=== PATIENT | male | born 1970 | race Caucasian/White ===

== ENCOUNTER → 2017-05-31 07:26 | Outpatient (CLI) | payer MEDICARE ==
[2014-07-16 08:03] VITALS: BMI 22.6
[~2017-05-31 07:26] MED LIST: BAYER CHEWABLE81 MG PO; ISOSORBIDE DINI30 MG PO; NITROQUICK0.4 MG SL; NORCO 5/325 TAB1 TA1 PO; PLAVIX75 MG PO; PRAVACHOL20 MG PO; PRILOSEC20 MG PO; RANEXA500 MG PO; TOPAMAX100 MG PO
== END | disposition home or self-care (01) ==
LOC: D.CT 07:26
DX: R05 Cough (principal); F17.200 Nicotine dependence, unspecified, uncomplicated

== ENCOUNTER → 2017-09-16 10:41 | Outpatient (CLI) | payer MEDICARE ==
[2014-07-16 08:03] VITALS: BMI 22.6
== END | disposition home or self-care (01) ==
LOC: D.RAD 09-06 14:15
DX: M25.512 Pain in left shoulder (principal)

== ENCOUNTER → 2017-11-15 10:44 | Outpatient (CLI) | payer MEDICARE ==
[2014-07-16 08:03] VITALS: BMI 22.6
== END | disposition home or self-care (01) ==
LOC: D.RAD 11-14 11:00
DX: M54.2 Cervicalgia (principal)

== ENCOUNTER 2018-08-20 14:05 | Outpatient (CLI) | payer MEDICARE ==
[~2018-08-20] VITALS: Ht 170.2 cm; Wt 79.8 kg
--- NOTE | ~2018-08-20 | HEMODYNAMI ---
PATIENT:VIRGIL KRAMER JR MEDICAL RECORD: [id number] : 66 LOCATION:[facility] D.2116 ADMISSION DATE: 08/20/18 Generatedon:08/21/201812:41 Patient name: VIRGIL KRAMER Patient #: [id number] SSN: DO B: 1970 Date of study: 08/21/2018 Page: Of Hemodynamic Procedure Report Patient Data Patient Demographics Procedure consent was obtained First Name: VIRGIL Gender: Male Last Name: NIA Suffix: Patient #: [id number] : 1970 Age: 48 year(s) Accession #: Race: Unknown [id number] Additional ID: [id number] Contact details [address]: [address] [place] [address] State: [place] City: [place] Zip code: [address] Admission Admission Data Admission Date: 08/20/2018 Admission Time: 16:39 Room #: D.2116 Lab Results Lab Result Date: 08/21/2018 Lab Result Time: 0:00 Biochemistry Name Units Result Min Max BUN mg/dl 7 --(*---)-- 7 18 Creatinine mg/dl 1.1 --(--*-)-- 0.6 1.3 CBC Name Units Result Min Max Hemoglobin g/dl 14.4 --(*---)-- 13.5 17.5 Procedure Procedure Types Cath Procedure Diagnostic Procedure [facility] w/Coronaries Sedation Charges Moderate Sedation up to 15 minutes PCI Procedure Coronary Stent Coronary Stent Initial Coronary Stent Additional Procedure Description Procedure Date Procedure Date: 08/21/2018 Procedure Start Time: 12:14 Procedure End Time: 12:33 Procedure Staff Name Function Bradford Varma MD Performing Physician Tej Huynh RT Scrub Dilma Lauren RN Nurse Nuvia Oquendo RN Product Design Manager Delicia Chavez RT Monitor Procedure Data Cath Procedure Fluoroscopy Diagnostic fluoroscopy Total fluoroscopy Time: 4.4 time: 4.4 min min Diagnostic fluoroscopy Total fluoroscopy dose: 810 dose: 810 mGy mGy Contrast Material Contrast Material Type Amount (ml) Isovue 300 118 Entry Location Entry Primary Successful Side Size Upsize Upsize Entry Closure Kemp ccessful Closure Location (Fr) 1 (Fr) 2 (Fr) Remarks Device Remarks Radial Right 6 Fr Mechanical artery Short Compression Estimated blood loss: 10 ml Diagnostic catheters Device Type Used For End Catheter Placement DIAGNOSTIC [place] 110cm 5 Procedure Fr catheter ([id number]) Procedure Complications No complications Procedure Medications Medication Administration Route Dosage Oxygen etCO2 Nasal cannula 2 l/min Lidocaine 2% added to field 20 Heparin Flush Bag added to field 2 bags (1000units/500ml NS) 0.9% NaCl I.V. 100 ml/hr Radial Cocktail added to field 1 syringe (Verapomil 2mg/Nitro 400mcg/Heparin 1500units) Heparin Bolus I.V. 4000 units Plavix P.O. 75 mg Versed I.V. 2 mg Fentanyl I.V. 50 mcg Versed I.V. 1 mg Fentanyl I.V. 25 mcg Hemodynamics Rest HGB: 14.4 (g/dl) Heart Rate: 78 (bpm) Snapshots Pre Cath Intra NCS Post Cath Vital Signs Time Heart Resp SPO2 etCO2 NIBP Rhythm Pain Sedation Rate (ipm) (%) (mmHg) (mmHg) Status Level (bpm) 11:53:40 85 19 97 23.7 113/79(97) NSR 0 (11) 10(A) , No pain 11:57:48 76 14 99 22.7 106/70(85) NSR 0 (11) 10(A) , No pain 12:01:57 64 13 98 18.9 99/62(80) NSR 0 (11) 10(A) , No pain 12:06:05 69 11 98 18.2 92/66(84) NSR 0 (11) 10(A) , No pain 12:10:07 70 10 97 18.9 105/72(98) NSR 0 (11) 10(A) , No pain 12:14:13 74 10 98 18.2 108/76(85) NSR 0 (11) 10(A) , No pain 12:18:25 80 13 97 13.7 109/60(77) NSR 0 (11) 10(A) , No pain 12:22:28 80 10 98 14 104/67(85) NSR 0 (11) 10(A) , No pain 12:26:36 80 12 97 17.8 112/69(89) NSR 0 (11) 10(A) , No pain 12:30:46 80 11 98 20.6 104/66(83) NSR 0 (11) 10(A) , No pain Medications Time Medication Route Dose Verified Delivered Reason Not es Effectiveness by by 11:51:48 Oxygen etCO2 2 l/min Bradfordchristy Perera used for Nasal Avani Lauren RN procedure cannula 11:51:55 Lidocaine 2% added 20ml Bradford Bradford for local to vial Avani Varma MD anesthetic field 11:52:02 Heparin Flush added 2 bags Bradford Felder used for Bag to Avani Varma MD procedure (1000units/500ml field NS) 11:52:12 0.9% NaCl I.V. 100 Bradfordchristy Hernandezie Per physician ml/hr Avani Lauren RN 12:07:19 Radial Cocktail added 1 Bradford Nuvia used for (Verapomil to syringe Avani Oquendo procedure 2mg/Nitro field RN 400mcg/Heparin 1500units) 12:13:07 Fentanyl I.V. 50 mcg Bradford Nuvia for sedation Avani Oquendo RN 12:13:54 Versed I.V. 2 mg Bradford Nuvia for sedation Avani Oquendo RN 12:21:14 Heparin Bolus I.V. 4000 Bradford Nuvia for amadeo ified units Avani Oquendo anticoagulation with Dr. PK Varma 12:21:47 Plavix P.O. 75 mg Bradford Nuvia for Avani Oquendo antiplatelet RN therapy 12:25:21 Versed I.V. 1 mg Bradford Nuvia for sedation Avani Oquendo RN 12:25:32 Fentanyl I.V. 25 mcg Bradford Nuvia for sedation Avani Oquendo RN Procedure Log Time Note 11:30:22 Dilma Lauren RN sent for patient. Start room use. 11:38:37 Time tracking: Regular hours (M-F 7:00 - 5:00) 11:38:41 Plan of Care:Hemodynamics will remain stable., Cardiac rhythm will remain stable., Comfort level will be maintained., Respiratory function will remain adequate., Patient/ family verbilizes understanding of procedure., Procedure tolerated without complication., Recovers from procedure without complications.. 11:44:11 Patient received from PCU to CCL 1 Alert and oriented. Tansferred to table in Supine position. 11:44:12 Warm blankets applied, and cosme hugger turned on for patient comfort. 11:44:13 Correct patient and procedure confirmed by team. 11:44:14 Signed procedure consent form obtained from patient. 11:44:15 ECG and BP/O2 sat monitors applied to patient. 11:51:48 Oxygen 2 l/min etCO2 Nasal cannula was administered by Dilma Lauren RN; used for procedure; 11:51:55 Lidocaine 2% 20ml vial added to field was administered by Bradford Varma MD; for local anesthetic; 11:52:02 Heparin Flush Bag (1000units/500ml NS) 2 bags added to field was administered by Bradford Varma MD; used for procedure; 11:52:12 0.9% NaCl 100 ml/hr I.V. was administered by Dilma Lauren RN; Per physician; 11:52:37 Vital chart was started 11:59:23 Baseline sample Acquired. 11:59:28 Rhythm: sinus rhythm 11:59:30 Full Disclosure recording started 11:59:44 H&P Date Dictated: 08/20/2018 Within 30 days and on chart., H&P Addendum completed by physician on day of procedure. (MUST COMPLETE FOR ALL OUTPATIENTS). 11:59:45 Pre-procedure instructions explained to patient. 11:59:45 Pre-op teaching completed and patient verbalized understanding. 11:59:46 Family in patients room. 11:59:51 Patient NPO since Midnight. 11:59:55 Is the patient allergic to Iodine/contrast media? No. 11:59:56 Is patient on blood thinner?Yes 11:59:57 ACC The patient was administered the following blood thiners within the last 24 hours: ACCPlavix 11:59:59 Patient diabetic? No. 12:00:02 Previous problem with sedation/anesthesia? No ? 12:00:03 Snore? Yes 12:00:04 Sleep apnea? No 12:00:05 Deviated septum? No 12:00:05 Opens mouth fully? Yes 12:00:06 Sticks out tongue? Yes 12:00:09 Airway obstruction? Yes COPD 12:00:13 Dentures? Yes IN TIGHT 12:00:17 Modified Ken's test Ulnar < 7 seconds 12:00:21 Patient pain scale 0/10 ?. 12:00:26 IV patent on arrival in right forearm with 0.9% NaCl at [facility] 12:00:55 Lab Result : Creatinine 1.1 mg/dl 12:00:55 Lab Result : BUN 7 mg/dl 12:00:55 Lab Result : Hemoglobin 14.4 g/dl 12:00:57 Lab results completed and on chart. 12:01:00 Right Radial & Right Groin area was prepped with chlora-prep and draped in sterile fashion 12:01: Alarms reviewed by R. N. 12:01: Sharps counted by scrub and verified by R.N. 12:01:16 Use device set Radial Dx or PCI 12:02:38 ACIST Syringe (34316) opened to sterile field. 12:02:39 ACIST Hand Control (49788) opened to sterile field. 12:02:39 ACIST Manifold (60785) opened to sterile field. 12:02:40 Tegaderm 4 x 4 (1626W) opened to sterile field. 12:02:41 Bag Decanter (2002S) opened to sterile field. 12:02:43 Medline Cath Pack ([id number]) opened to sterile field. 12:02:44 DIAGNOSTIC WIRE .035 260cm J wire (395078) opened to sterile field. 12:02:46 MBrace Wrist Support ([id number]) opened to sterile field. 12:02:49 SHEATH 6Fr Prelude Radial ([id number]) opened to sterile field. 12:06:44 Zero performed for pressure channel P1 12:07:19 Radial Cocktail (Verapomil 2mg/Nitro 400mcg/Heparin 1500units) 1 syringe added to field was administered by Nuvia Oquendo RN; used for procedure; 12:12:17 --------ALL STOP TIME OUT------ 12:12:18 Final Timeout: patient, procedure, and site verified with staff and physician. All members of the team are in agreement. 12:12:20 Right Radial & Right Groin site verified by team. 12:12:23 Physical assessment completed. ASA score P 2 - A patient with mild systemic disease as per Bradford Varma MD. 12:12:29 Sedation plan: IV Moderate Sedation Medication:Versed, Fentanyl 12:13:07 Fentanyl 50 mcg I.V. was administered by Nuvia Oquendo RN; for sedation; 12:13:54 Versed 2 mg I.V. was administered by Nuvia Oquendo RN; for sedation; 12:14:09 Procedure started. 12:14:23 Local anesthetic to right radial artery with Lidocaine 2% by Bradford Varma MD.INITIAL ACCESS ONLY 12:14:58 A 6 Fr Short sheath was inserted into the Right Radial artery 12:15:30 A DIAGNOSTIC [place] 110cm 5 Fr catheter ([id number]) was advanced over the wire and used for Procedure. 12:16:02 LV gram done using GARRISON 12:16:11 Injector settings: Ml/sec: 7, Volume: 15, 12:16:35 EF : 60 % 12:17:03 LCA angiography performed. 12:17:40 INFLATOR Merit BasixCompak (SN4603) opened to sterile field. 12:17:41 CHOICE PT Extra Support 182cm wire ([id number]) opened to sterile field. 12:18:07 RCA angiography performed. 12:18:36 Catheter exchanged over wire. 12:19:05 GUIDE 6FR XBLAD 3.5 catheter ([id number]) opened to sterile field. 12:20:17 6 Fr XBLAD 3.5 guide catheter was inserted over the wire 12:20:30 CHOICE PT Extra Support 182cm wire ([id number]) opened to sterile field. 12:21:05 CHOICE ES 182 #1 wire advanced. 12:21:14 Heparin Bolus 4000 units I.V. was administered by Nuvia Oquendo RN; for anticoagulation; verified with Dr. Varma 12:21:42 WIRE #1 ADVANCED ACROSS DIAG 12:21:47 Plavix 75 mg P.O. was administered by Nuvia Oquendo RN; for antiplatelet therapy; 12:22:37 WIRE #2 ADVANCED ACROSS LAD 12:24:59 Place stent Inflation Number: 1 A TEVIN RX 2.5 x 18 stent ([id number]) was prepped and advanced across the 1st Diag. The stent was deployed at 17 JOHN for 0:10 (min:sec). 12:25:19 Inflation number: 2 The stent balloon was then re-inflated across the 1st Diag to 17 JOHN for 0:10 (min:sec). 12:25:21 Versed 1 mg I.V. was administered by Nuvia Oquendo RN; for sedation; 12::32 Fentanyl 25 mcg I.V. was administered by Nuvia Oquendo RN; for sedation; 12::03 Inflation number: 3 The stent balloon was then re-inflated across the 1st Diag to 15 JOHN for 0:10 (min:sec). 12:: Stent catheter was removed intact over wire. 12:: WIRE FROM DIAG REMOVED 12:28:08 Place stent Inflation Number: 1 A TEIVN RX 3.0 x 15 stent ([id number]) was prepped and advanced across the Prox LAD. The stent was deployed at 17 JOHN for 0:10 (min:sec). 12::48 Stent catheter was removed intact over wire. 12::50 Wire removed. 12::52 Guide catheter removed. 12:29:00 TR BAND Standard ([id number]) opened to sterile field. 12:30:01 Procedure ended.(Physican Out) 12::31 Sheath removed intact; hemostasis achieved with Mechanical Compression to the Right Radial artery. 12:31:35 Fluoroscopy time 04.40 minutes. 12:31:39 Fluoroscopy dose: 810 mGy 12:31:39 Flurop Dose total: 810 12:31:42 Contrast amount:Isovue 300 118ml. 12:31:57 Post-procedure physical assessment completed. ASA score P 2 - A patient with mild systemic disease as per Bradford Varma MD. 12:32:01 Post procedure rhythm: sinus rhythm 12:32:04 Estimated blood loss: 10 ml 12:32:05 Post procedure instruction explained to patient.Patient verbalizes understanding. 12:32:06 Patient needs reinforcement of post procedure teaching. 12:32:30 Procedure type changed to Cath procedure, Diagnostic procedure, LHC, LHC w/Coronaries, Sedation Charges, Moderate Sedation up to 15 minutes, PCI procedure, Coronary Stent, Coronary Stent Initial, Coronary Stent Additional 12:32:53 Procedure and supply charges have been captured, reviewed, submitted and are correct. 12:32:55 Procedure Complication : No complications 12:32:57 Vital chart was stopped 12:32:58 See physician's report for complete and final results. 12:33:00 Report given to PCU. 12:33:02 Patient transfered to PCU with Bed. 12:33:04 Procedure ended. 12:33:04 Full Disclosure recording stopped 12:33:08 End room use (Document Last) 12:39:02 TR band inflated with 10cc of air. 12:40:11 IV ON RIGHT FOREARM REMOVED TO PLACE TR BAND ON THE RIGHT WRIST 12:40:27 IV right forearm D/C'd due to need to relocate for procedure.. 12:40:38 IV started by Nuvia Oquendo RN inleft forearm with a 20 gauge IV catheter with 0.9% NaCl at O. Intervention Summary Intervention Notes Time ActionType Lesion and Equipment Used Action# Pressure Duration Attributes 12:24:59 Place stent 1st Diag TEVIN RX 2.5 x 1 17 00:10 18 stent ([id number]) 12:25:19 Reinflate 1st Diag TEVIN RX 2.5 x 2 17 00:10 stent 18 stent balloon ([id number]) 12:26:03 Reinflate 1st Diag TEVIN RX 2.5 x 3 15 00:10 stent 18 stent balloon ([id number]) 12:28:08 Place stent Prox LAD TEVIN RX 3.0 x 1 17 00:10 15 stent ([id number]) Device Usage Item Name Manufacture Quantity Catalog Number Hospital Part Current Minimal Lot# / Charge Number Stock Stock Serial# Code ACIST Syringe Acist 1 47572 227492 582752 961958 20 (72902) Medical Systems Inc ACIST Hand Acist 1 53119 108158 129192 448760 5 Control (19286) [employer] Inc ACIST Manifold Acist 1 94476 829790 488976 953992 5 (83278) [employer] Systems Inc Tegaderm 4 x 4 3M 1 1626W 691318 496501 979534 5 (1626W) Bag Decanter Microtek 1 2001S 864243 61034 523757 5 (2001S) Medical Inc. Medline Cath Medline 1 [id number] 509306 78426 246653 5 Pack ([id number]) DIAGNOSTIC WIRE [place] 1 076609 332707 724071 975979 30 .035 260cm J wire (147543) MBrace Wrist Advanced 1 140-0250-00 445307 80035 442230 5 Support Vascular ([id number]) Dynamics SHEATH 6Fr Merit 1 [id number] 489686 150185 652088 5 Prelude Radial Medical ([id number]) DIAGNOSTIC Terumo 1 40-3315 807288 874296 613297 5 [place] 110cm 5 Fr catheter (104030) INFLATOR Merit Merit 1 [id number] 173355 697645 282381 15 [facility] Medical (XE3584) CHOICE PT Extra [place] 2 [id number] 919395 499605 502725 5 Support 182cm Scientific wire ([id number]) GUIDE 6FR XBLAD Cardinal 1 [id number] 262074 534344 176067 10 3.5 catheter Health (19722588) TEVIN RX 2.5 x Medtronic 1 [id number] 063099 8292063 274556 5 [id number] 18 stent ([id number]) TEVIN RX 3.0 x Medtronic 1 [id number] 168082 9999321 661704 5 [id number] 15 stent ([id number]) TR BAND Terumo 1 [id number] 985739 553436 775216 40 Standard ([id number]) Signature Audit [place] Stage Time Signature Unsigned Intra-Procedure 08/21/2018 Delicia Chavez 12:41:22 PM RT(R) Signatures Monitor : Delicia Chavez Signature : RT Date : Time : [address] [address]
--- NOTE | ~2018-08-20 | MORECARE ---
CASE MANAGEMENT DISCHARGE SUMMARY PATIENT: VIRGIL KRAMER JR UNIT: [id number] ADM DATE: 08/20/18 AGE: 48 : 66 SEX: M ROOM/BED: D.2116 AUTHOR: SHILO,DOC PHYSICIAN: REFERRING PHYSICIAN: JANICE AUSTIN M.D. DATE OF SERVICE: 08/21/18 Discharge Plan Patient Name: VIRGIL KRAMER Facility: [facility]:[place] : 1970 Planned Disposition: Home Anticipated Discharge Date: Discharge Date: Expected LOS: Initial Reviewer: [email or web address] Initial Review Date: 08/20/2018 Generated: 08/21/18 8:31 am DCP- Discharge Planning Updated by [email or web address]: Angie Wong on 08/20/18 5:[address] CM met with patient and friend in ER/room to discuss dc needs/plans. Patient provided verbal consent to discuss current and ongoing needs with/in the presence of Mary Poeears (live-in friend) [phone]. CM discussed availability of Home Health, Rehab Services and Medical Equipment. PCP: Dr. Caldwell. Pharmacy: [facility]. HHS: None. DME: None. Emergency Contact: Mary Poeears (friend) [phone], Lakeshia Anderson (sister) [phone]. Patient states he feels safe returning to the home environment and at this time, he does not feel he requires additional services upon discharge. CM will continue to follow and assist with dc needs/plans PRN. Angie Wong RN CM DCPIA - Discharge Planning Initial Assessment Updated by [email or web address]: Angie Wong on 08/20/18 6:09 pm * Is the patient Alert and Oriented? Yes * How many steps to enter\exit or inside your home? 3 with arce * PCP Dr. Caldwell * Pharmacy [facility] * Preadmission Environment Home with Family * ADLs Independent * Equipment None * Other Equipment None * List name and contact numbers for known caregivers / representatives who currently or will assist patient after discharge: Mary Poeears (live-in friend) [phone] Lakeshia Anderson (sister) [phone] * Verbal permission to speak to the caregivers and representatives has been obtained from the patient. Yes * Community resources currently utilized None * Please name any agencies selected above. None * Additional services required to return to the preadmission environment? No * Can the patient safely return to the preadmission environment? Yes * Has this patient been hospitalized within the prior 30 days at any hospital? No Last DP export: 08/20/18 5:14 Patient Name: VIRGIL KRAMER Page 18578 at 0731 All edits/amendments must be made on the electronic document DICTATION DATE: 08/21/18729 FRUIT PACKER: NAN 08/21/18729 RPT#: [id number] DC DATE: STATUS: ADM IN [facility] [address] [place] [address] END OF REPORT
--- NOTE | ~2018-08-20 | MORECARE ---
CASE MANAGEMENT DISCHARGE SUMMARY PATIENT: VIRGIL KRAMER JR UNIT: [id number] ADM DATE: 08/20/18 AGE: 48 : 66 SEX: M ROOM/BED: D.2116 AUTHOR: NEETU LAO PHYSICIAN: REFERRING PHYSICIAN: JANICE AUSTIN M.D. DATE OF SERVICE: 08/20/18 Discharge Plan Patient Name: VIRGIL KRAMER Facility: [facility]:[place] : 1970 Planned Disposition: Anticipated Discharge Date: Discharge Date: Expected LOS: Initial Reviewer: [email or web address] Initial Review Date: 08/20/2018 Generated: 08/20/18 7:06 pm DCP- Discharge Planning Updated by [email or web address]: Angie Wong on 08/20/18 5:[address] CM met with patient and friend in ER/room to discuss dc needs/plans. Patient provided verbal consent to discuss current and ongoing needs with/in the presence of Mary Perez (live-in friend) [phone]. CM discussed availability of Home Health, Rehab Services and Medical Equipment. PCP: Dr. Caldwell. Pharmacy: [facility]. HHS: None. DME: None. Emergency Contact: Mary Perez (friend) [phone], Lakeshia Anderson (sister) [phone]. Patient states he feels safe returning to the home environment and at this time, he does not feel he requires additional services upon discharge. CM will continue to follow and assist with dc needs/plans PRN. Angie Wong RN, CM Patient Name: VIRGIL KRAMER Page [id number] at 1806 All edits/amendments must be made on the electronic document DICTATION DATE: 08/20/181805 PHYSICIAN PRACTICE COORDINATOR: NAN 08/20/181805 RPT#: [id number] DC DATE: STATUS: ADM IN [facility] [address] [place] [address] END OF REPORT
--- NOTE | ~2018-08-20 | MORECARE ---
CASE MANAGEMENT DISCHARGE SUMMARY PATIENT: VIRGIL KRAMER JR UNIT: [id number] ADM DATE: 08/20/18 AGE: 48 : 66 SEX: M ROOM/BED: D.2116 AUTHOR: SHILO,DOC PHYSICIAN: REFERRING PHYSICIAN: JANICE AUSTIN M.D. DATE OF SERVICE: 08/21/18 Discharge Plan Patient Name: VIRGIL KRAMER Facility: [facility]:[place] : 1970 Planned Disposition: Home Anticipated Discharge Date: 08/21/18 Discharge Date: Expected LOS: 1 Initial Reviewer: [email or web address] Initial Review Date: 08/20/2018 Generated: 08/21/18 4:38 pm DCP- Discharge Planning Updated by [email or web address]: Angie Wong on 08/20/18 5:[address] CM met with patient and friend in ER/room to discuss dc needs/plans. Patient provided verbal consent to discuss current and ongoing needs with/in the presence of Mary Perez (live-in friend) [phone]. CM discussed availability of Home Health, Rehab Services and Medical Equipment. PCP: Dr. Caldwell. Pharmacy: [facility]. HHS: None. DME: None. Emergency Contact: Mary Perez (friend) [phone], Lakeshia Anderson (sister) [phone]. Patient states he feels safe returning to the home environment and at this time, he does not feel he requires additional services upon discharge. CM will continue to follow and assist with dc needs/plans PRN. Angie Wong RN CM DCPIA - Discharge Planning Initial Assessment Updated by [email or web address]: Angie Wong on 08/20/18 6:09 pm * Is the patient Alert and Oriented? Yes * How many steps to enter\exit or inside your home? 3 with arce * PCP Dr. Caldwell * Pharmacy [facility] * Preadmission Environment Home with Family * ADLs Independent * Equipment None * Other Equipment None * List name and contact numbers for known caregivers / representatives who currently or will assist patient after discharge: Mary Perez (live-in friend) [phone] Lakeshia Anderson (sister) [phone] * Verbal permission to speak to the caregivers and representatives has been obtained from the patient. Yes * Community resources currently utilized None * Please name any agencies selected above. None * Additional services required to return to the preadmission environment? No * Can the patient safely return to the preadmission environment? Yes * Has this patient been hospitalized within the prior 30 days at any hospital? No Last DP export: 08/21/18 6:31 Patient Name: VIRGIL KRAMER Page 42888 at 1539 All edits/amendments must be made on the electronic document DICTATION DATE: 08/21/181537 TRANSCRIBING MACHINE OPERATOR: NAN 08/21/181537 RPT#: [id number] DC DATE: STATUS: ADM IN [facility] [address] [place] [address] END OF REPORT
--- NOTE | ~2018-08-20 | DS ---
PATIENT:VIRGIL KRAMER JR :66 MEDICAL RECORD: [id number] DISCHARGE SUMMARY ADMISSION DATE: 08/20/18 DISCHARGE DATE: 08/21/18 DATE OF DISCHARGE: 08/21/2018. DIAGNOSES: 1. Angina. 2. Coronary artery disease. 3. Percutaneous transluminal coronary angioplasty stent left anterior descending and diagonal this admission. HOSPITAL COURSE: Mr. Kramer presents with anginal symptomatology, found to have significant disease of the LAD and diagonal, underwent successful PTCA stent of both territories, was discharged home with the addition of aspirin and Plavix to his medical regimen. He will follow up with [facility] in 1 month. TRANSINT:[id number] Voice Confirmation ID: [id number] DOCUMENT ID: [id number] SRIDEVI LEPE MD at 8054 CC: [id number] DICTATION DATE: 08/21/18 1234 PET TECHNOLOGIST: 08/22/18 0056 DIS IN 08/21/18 [facility] [address] [place] [address]
--- NOTE | ~2018-08-20 | MORECARE ---
CASE MANAGEMENT DISCHARGE SUMMARY PATIENT: VIRGIL KRAMER JR UNIT: [id number] ADM DATE: 08/20/18 AGE: 48 : 66 SEX: M ROOM/BED: D.2116 AUTHOR: SHILO,DOC PHYSICIAN: REFERRING PHYSICIAN: JANICE AUSTIN M.D. DATE OF SERVICE: 08/20/18 Discharge Plan Patient Name: VIRGIL KRAMER Facility: [facility]:[place] : 1970 Planned Disposition: Anticipated Discharge Date: Discharge Date: Expected LOS: Initial Reviewer: [email or web address] Initial Review Date: 08/20/2018 Generated: 08/20/18 7:14 pm DCP- Discharge Planning Updated by [email or web address]: Angie Wong on 08/20/18 5:[address] CM met with patient and friend in ER/room to discuss dc needs/plans. Patient provided verbal consent to discuss current and ongoing needs with/in the presence of Mary Ndiayeshears (live-in friend) [phone]. CM discussed availability of Home Health, Rehab Services and Medical Equipment. PCP: Dr. Caldwell. Pharmacy: [facility]. HHS: None. DME: None. Emergency Contact: Mary Poeears (friend) [phone], Lakeshia Anderson (sister) [phone]. Patient states he feels safe returning to the home environment and at this time, he does not feel he requires additional services upon discharge. CM will continue to follow and assist with dc needs/plans PRN. Angie Wong RN CM DCPIA - Discharge Planning Initial Assessment Updated by [email or web address]: Angie Wong on 08/20/18 6:09 pm * Is the patient Alert and Oriented? Yes * How many steps to enter\exit or inside your home? 3 with arce * PCP Dr. Caldwell * Pharmacy [facility] * Preadmission Environment Home with Family * ADLs Independent * Equipment None * Other Equipment None * List name and contact numbers for known caregivers / representatives who currently or will assist patient after discharge: Mary Ndiayeshears (live-in friend) [phone] Lakeshia Anderson (sister) [phone] * Verbal permission to speak to the caregivers and representatives has been obtained from the patient. Yes * Community resources currently utilized None * Please name any agencies selected above. None * Additional services required to return to the preadmission environment? No * Can the patient safely return to the preadmission environment? Yes * Has this patient been hospitalized within the prior 30 days at any hospital? No Last DP export: 08/20/18 5:06 Patient Name: VIRGIL KRAMER Page [id number] at 1814 All edits/amendments must be made on the electronic document DICTATION DATE: 08/20/181813 SALES REPRESENTATIVE PUBLICATIONS: NAN 08/20/181813 RPT#: [id number] [place] DATE: STATUS: ADM IN [facility] [address] [place] [address] END OF REPORT
--- NOTE | ~2018-08-20 | HP ---
PATIENT: VIRGIL MERINO JR MEDICAL RECORD: [id number] ACCOUNT: [id number] LOCATION:[address] : 66 ADMISSION DATE: 08/20/18 PCP: FABIAN BRIDGES MD HISTORY AND PHYSICAL EXAMINATION DIAGNOSES: 1. Unstable angina. 2. Coronary disease. 3. Previous PTCA and stent. 4. Hypertension. 5. Hyperlipidemia. HISTORY: Mr. Merino presents with increasing anginal symptomatology. This has been going on for weeks, but it really increased over the past 24 hours. His EKG is with no acute ST-T abnormalities. He continues to have episodes of the chest discomfort. Last cardiac stenting was 6 years ago. The pain he is having now and the shortness of breath are just like the symptoms he had prior to the stenting 6 years ago. REVIEW OF SYSTEMS: The patient reports easy bruising but reports no swollen glands. The patient reports no fever, no night sweats, no significant weight gain, no significant weight loss. No significant exercise tolerance. The patient reports no dry eyes, no irritation, no vision change. Patient reports no difficulty hearing and no ear pain. Patient reports no frequent nose bleeds or nose and sinus problems. Patient reports on arm pain on exertion. No shortness of breath while lying down. No history of heart murmur. Patient reports no cough, no wheezing or coughing up blood. Patient reports no abdominal pain, no vomiting. Normal appetite. No diarrhea and not vomiting blood. No nausea and no constipation. Patient reports no incontinence. No difficulty urinating. No hematuria. No increased frequency. Patient reports no muscle aches. No weakness, no arthralgias, no back pain. No swelling of the extremities. Patient reports no abnormal mole, no jaundice, no rashes. Reports no loss of consciousness. No weakness and no numbness. No seizures, dizziness, or headaches. The patient reports no depression, no sleep disturbance, feeling safe in a relationship and no alcohol abuse. Patient reports on fatigue. Reports no runny nose or sinus pressure. No itching, no hives, and no frequent sneezing. PHYSICAL EXAMINATION: GENERAL APPEARANCE: Well-nourished, well-developed, appears stated age. Level of distress, comfortable. PSYCHIATRIC: Mental status, alert, normal affect. Orientation, oriented to time, place and person. EYES: Lids and conjunctiva, noninjected. No discharge, no pallor. ENT: Lips, teeth, gums, normal dentition. Oropharynx, no cyanosis, no pallor. NECK: Carotid arteries, bilateral normal upstroke, no bruits, no thrills. JUGULAR VEINS: No jugular venous pressure or distention. CERVICAL LYMPH NODES: Nontender, nonenlarged. THYROID: Not enlarged. Nontender. No nodules. LUNGS: Respiratory effort, unlabored. CHEST: Normal curvature. No thoracic deformity. No chest wall tenderness. Percussion, resonant. Auscultation, clear. No wheezes, no rales, no rhonchi. CARDIOVASCULAR: Precordial exam, nondisplaced. No heaves or pericardial thrills. Rate and rhythm, regular. Heart sounds, normal S1, normal S2. No S3, no gallop, no rub. Systolic murmur, not heard. Diastolic murmur, not heard. HISTORY AND PHYSICAL [id number] VIRGIL MERINO JR EXTREMITIES: No cyanosis, no edema. Peripheral pulses, full and equal in all extremities, except as noted. No bruits appreciated. ABDOMEN: Soft, nondistended. Normal aorta. No bruit. Nontender. No masses. Liver, nontender, no hepatomegaly. Spleen, nontender, no splenomegaly. MUSCULOSKELETAL: No joint tenderness. No joint swelling. No erythema. NEUROLOGICAL: Normal gait, normal strength, normal tone. SKIN: Warm and dry. OVERALL IMPRESSION: Rapidly progressive unstable angina. We will proceed with coronary angiography. Further care depends upon findings of the angiography. TRANSINT:[id number] Voice Confirmation ID: [id number] DOCUMENT ID: [id number] SRIDEVI LEPE MD at 1233 CC: [id number] DICTATION DATE: 08/20/18 170 CONSTRUCTION TECHNICIAN: 08/20/18 175 ADM IN [facility] [address] [place] [address]
--- NOTE | ~2018-08-20 | OP ---
PATIENT NAME: VIRGIL KRAMER JR MEDICAL RECORD: [id number] :66 LOCATION:D.M2 D.2116 ADMISSION DATE:08/20/18 SURGEON: SRIDEVI LEPE MD DATE OF OPERATION: 08/21/2018 PROCEDURES: 1. PTCA and stent of LAD. 2. PTCA and stent of LAD diagonal. 3. Left heart catheterization. 4. Selective coronary angiography. 5. Left ventriculogram. INDICATION: Unstable angina. PROCEDURE IN DETAIL: After informed consent was obtained and after a detailed explanation of risks, benefits as well as alternative therapies, the patient elected to proceed with angiogram and angioplasty. The right femoral area was prepped and draped in normal sterile fashion. Right femoral artery was cannulated via modified Seldinger technique with placement of 6-Gabonese sheath. All catheters exchanged through this sheath. FINDINGS: Left ventriculogram was performed in a standard 30-degree GARRISON view, reveals good cardiac wall motion throughout all segments. Overall ejection fraction estimated 60%. SELECTIVE CORONARY ANGIOGRAPHY: 1. Left main is with no significant angiographic disease. 2. Left anterior descending has previously placed stents. Just before the previously placed stents, there is 80% stenosis. 3. The diagonal has previously placed stents. Just before this, there is 80% stenosis. 4. The left circumflex has mild irregularities. Previously placed stents are noted. No significant restenosis. 5. The right coronary has mild irregularities, but no flow-limiting stenosis. PTCA AND STENT OF THE LAD AND LAD DIAGONAL: The diagonal was addressed with a 2.5 x 18-mm [place], the LAD with a 3.5 x 15-mm [place]. Result was 0% residual stenosis. OVERALL IMPRESSION: Successful PTCA and stent of the LAD and diagonal going from 80% initial stenosis to 0% residual. TRANSINT:[id number] Voice Confirmation ID: [id number] DOCUMENT ID: [id number] SRIDEVI LEPE MD at 0754 CC: [id number] DICTATION DATE: 08/21/18 1236 EDIPHONE OPERATOR: 08/21/18 1245 DIS IN 08/21/18 [facility] [address] [place] [address]
[2018-08-20 14:45] LABS: BASOPHILS 0.8 % (0-2); EOSINOPHILS 5.1 % (0-7); HEMATOCRIT 41.9 % (42.0-54.0); HEMOGLOBIN 14.4 g/dL (13.5-17.5); IMMATURE GRANULOCYTES 0.5 % (0-5); LYMPHOCYTES 36.3 % (15-50); MCH 30.8 pg (26.0-34.0); MCHC 34.4 g/dL (31.0-37.0); MCV 89.5 fL (80.0-100.0); MEAN PLATELET VOLUME 9.3 fL (7.4-10.4); MONOCYTES 6.7 % (2-11); NEUTROPHILS 50.6 % (40-80); PLATELET COUNT 238 10x3/uL (130-400); RBC 4.68 10x6/uL (4.20-6.10); RDW 14.4 % (11.5-14.5); WBC 9.5 10x3/uL (4.8-10.8)
[2018-08-20 14:53] LABS: INR 0.99 (0.85-1.17); PROTIME 12.7 SECONDS (11.6-15.0)
[2018-08-20 14:54] LABS: APTT 29.4 SECONDS (22.8-39.4)
[2018-08-20 15:02] LABS: ALBUMIN 3.6 g/dL (3.4-5.0); ALKALINE PHOSPHATASE 122 U/L (46-116); ALT (SGPT) 39 U/L (10-68); BILIRUBIN - TOTAL 0.18 mg/dL (0.2-1.3); CALC OSMOLALITY 278 mosm/kg (275-300); CALCIUM 8.4 mg/dL (8.5-10.1); CHLORIDE - SERUM 106 mmol/L (98-107); CREATININE - SERUM 1.1 mg/dL (0.6-1.3); GLUCOSE 136 mg/dL (74-106); POTASSIUM - SERUM 3.4 mmol/L (3.5-5.1); PROTEIN - SERUM 7.1 g/dL (6.4-8.2); SODIUM 140 mmol/L (136-145); UREA NITROGEN 7 mg/dL (7-18); eGFR NON AFRICAN AMERICAN 75 mL/min (90-120)
[2018-08-20 15:17] LABS: CKMB 0.9 U/L (0.0-3.6); CREATINE KINASE 89 UL (21-232); MAGNESIUM - SERUM 2.1 mg/dL (1.8-2.4)
[2018-08-20 15:20] LABS: TROPONIN-I < 0.017 ng/mL (0.000-0.060)
[2018-08-20 16:00] VITALS: BP 123/63
[2018-08-20 17:00] VITALS: BP 107/65
[2018-08-20 18:20] VITALS: BP 122/75; BMI 27.6
[2018-08-20 18:46] LABS: CKMB 0.7 U/L (0.0-3.6); CREATINE KINASE 89 UL (21-232)
[2018-08-20 18:47] LABS: TROPONIN-I < 0.017 ng/mL (0.000-0.060)
[2018-08-20 20:00] VITALS: BP 123/78
[2018-08-20 23:28] LABS: CKMB 0.6 U/L (0.0-3.6); CREATINE KINASE 84 UL (21-232)
[2018-08-20 23:29] LABS: TROPONIN-I < 0.017 ng/mL (0.000-0.060)
[2018-08-21] VITALS: BP 106/69
[2018-08-21 06:56] LABS: CKMB 0.6 U/L (0.0-3.6); CREATINE KINASE 77 UL (21-232)
[2018-08-21 07:00] LABS: TROPONIN-I < 0.017 ng/mL (0.000-0.060)
[2018-08-21 07:48] VITALS: BP 108/71
[2018-08-21 10:48] VITALS: Ht 170.2 cm; Wt 79.8 kg
[2018-08-21 11:31] VITALS: BP 98/58
[2018-08-21] MEDS ORDERED: ASPIRIN81 MG PO (14:45)
[2018-08-21] MEDS ORDERED: PLAVIX75 MG PO (14:45)
[2018-08-21 15:15] VITALS: BP 110/75
== END 2018-08-21 17:12 | disposition home or self-care (01) ==
LOC: OBSVTIME → D.OPS 14:05 → D.ER 14:05 → D.EDHOLD 16:39 → OBSVTIME 16:39 → D.ER 16:39 → D.M2 16:39 → D.EDHOLD 16:56 → EDSTATUS 08-21 09:00 → D.OPS 08-21 17:12 → D.M2 08-21 17:12
PROVIDERS: Emergency Medicine
DX: I25.110 Atherosclerotic heart disease of native coronary artery with unstable angina pectoris (principal); I10 Essential (primary) hypertension; E78.5 Hyperlipidemia, unspecified
CPT/HCPCS: 93458; C9600; C9601

== ENCOUNTER 2019-09-14 17:31 | Outpatient (CLI) | payer MEDICARE ==
[~2019-09-14] VITALS: Ht 170.2 cm; Wt 79.5 kg
--- NOTE | ~2019-09-14 | HEMODYNAMI ---
PATIENT:VIRGIL KRAMER JR MEDICAL RECORD: [id number] : 66 LOCATION[facility] D.[id number] ADMISSION DATE: 09/14/19 Generatedon:09/15/201916:30 Patient name: VIRGIL KRAMER Patient #: [id number] SSN: [id number] : 1970 Date of study: 09/15/2019 Page: Of Hemodynamic Procedure Report Patient Data Patient Demographics Procedure consent was obtained First Name: VIRGIL Gender: Male Last Name: NIA Suffix: Patient #: [id number] : 1970 Age: 49 year(s) SSN: [id number] Race: Additional ID: [id number] Contact details [address]: [address] [place] [address] State: [place] City: [place] Zip code: [address] Past Medical History History of disease Date Diagnosis Comments CAD Admission Admission Data Admission Date: 09/14/2019 Admission Time: 17:31 Arrival Date: 09/15/2019 Arrival Time: 0:00 Admit Source: Emergency department Room #: D.2117 Height (in.): 66.93 BSA: 1.92 (m2) Height (cm.): 170 BMI: 27.68 (kg/m2) Weight (lbs.): 176.37 Weight (kg.): 80 Lab Results Lab Result Date: 09/15/2019 Lab Result Time: 0:00 Biochemistry Name Units Result Min Max BUN mg/dl 13 --(--*-)-- 7 18 Creatinine mg/dl 1 --(--*-)-- 0.6 1.3 eGFR ml/min 84 -*(----)-- 90 120 NONAFRICAN CBC Name Units Result Min Max Hematocrit % 41.3 -*(----)-- 42 54 Hemoglobin g/dl 13.6 --(*---)-- 13.5 17.5 Procedure Procedure Types Cath Procedure Diagnostic Procedure [facility] w/Coronaries Sedation Charges Moderate Sedation up to 15 minutes PCI Procedure Coronary Stent Coronary Stent Initial Procedure Description Procedure Date Procedure Date: 09/15/2019 Procedure Start Time: 16:07 Procedure End Time: 16:27 Procedure Staff Name Function Delicia Chavez RT Monitor Dilma Lauren RN Nurse Sydney Murdock RT Scrub Toney Sharp RT Nursing Home Manager Ashok Peter MD Performing Physician Procedure Data Cath Procedure Fluoroscopy Diagnostic fluoroscopy Total fluoroscopy Time: 3.9 time: 3.9 min min Diagnostic fluoroscopy Total fluoroscopy dose: 773 dose: 773 mGy mGy Contrast Material Contrast Material Type Amount (ml) Isovue 300 111 Entry Location Entry Primary Successful Side Size Upsize Upsize Entry Closure Kemp ccessful Closure Location (Fr) 1 (Fr) 2 (Fr) Remarks Device Remarks Radial Right 6 Fr Mechanical artery Short Compression Estimated blood loss: 10 ml Diagnostic catheters Device Type Used For End Catheter Placement DIAGNOSTIC [place] 110cm 5 Procedure Fr catheter ([id number]) Procedure Complications No complications Procedure Medications Medication Administration Route Dosage Oxygen etCO2 Nasal cannula 2 l/min Lidocaine 2% added to field 20 Heparin Flush Bag added to field 2 bags (1000units/500ml NS) 0.9% NaCl I.V. 100 ml/hr Radial Cocktail I.A. 1 syringe (Verapamil 2mg/Nitro 400mcg/Heparin 1500units) Heparin Bolus I.V. 4000 units Versed I.V. 2 mg Versed I.V. 2 mg Fentanyl I.V. 100 mcg Fentanyl I.V. 100 mcg Versed I.V. 0.5 mg Fentanyl I.V. 25 mcg Plavix P.O. 75 mg Hemodynamics Rest BSA: 1.92 (m2) HGB: 13.6 (g/dl) O2 Consumption: Estimated: 226.48 (ml/min) O2 Co nsumption indexed: Estimated:117.96 (ml/min/m) Heart Rate: 66 (bpm) Pressure Samples Time Site Value (mmHg) Purpose Heart Use Rate(bpm) 16:10 LV 91/14,15 Snapshot 81 16:10 AO 99/73(89) Pullback 86 Gradients Valve Time Site Site 2 Mean SEP/DFP Peak To Heart Use 1 (mmHg) (sec/min) Peak Rate (mmHg) (bpm) Aortic 16:10 LV AO 86 99/73(89) Snapshots Pre Cath Intra NCS Post Cath Vital Signs Time Heart Resp SPO2 etCO2 NIBP (mmHg) Rhythm Pain Sedation Rate (ipm) (%) (mmHg) Status Level (bpm) 15:24:23 68 16 95 0 117/79(91) NSR 0 (11) 10(A) , No pain 15:28:35 77 19 94 0 112/75(91) NSR 0 (11) 10(A) , No pain 15:32:41 75 15 95 0 117/78(90) NSR 0 (11) 10(A) , No pain 15:36:49 76 25 95 0 111/83(95) NSR 0 (11) 10(A) , No pain 15:40:58 69 30 96 0 127/69(86) NSR 0 (11) 10(A) , No pain 15:45:06 80 14 95 0 110/75(94) NSR 0 (11) 10(A) , No pain 15:49:14 75 13 98 0 105/76(83) NSR 0 (11) 10(A) , No pain 15:53:18 72 18 93 0 108/79(101) NSR 0 (11) 10(A) , No pain 15:57:18 70 16 95 0 119/94(114) NSR 0 (11) 10(A) , No pain 16:01:23 71 16 92 0 120/92(116) NSR 0 (11) 10(A) , No pain 16:05:35 71 15 93 0 125/76(100) NSR 0 (11) 10(A) , No pain 16:09:51 74 17 94 0 108/69(82) NSR 0 (11) 9(A) , No pain 16:13:57 83 15 96 0 119/76(97) NSR 0 (11) 9(A) , No pain 16:18:01 80 18 98 0 114/80(104) NSR 0 (11) 9(A) , No pain 16:22:11 84 17 93 0 124/80(99) NSR 0 (11) 10(A) , No pain 16:26:18 78 16 95 0 108/81(100) NSR 0 (11) 10(A) , No pain Medications Time Medication Route Dose Verified Delivered Reason Not es Effectiveness by by 15:35:58 Oxygen etCO2 2 l/min Ashok Perera used for Nasal [place] Lauren photographic enlarger operator cannula 15:36:06 Lidocaine 2% added 20ml Ashok Pulido for local to vial [facility] anesthetic field MD EUBANKS 15:36:24 Heparin Flush added 2 bags Ashok Pulido used for Bag to [facility] procedure (1000units/500ml field MD EUBANKS NS) 15:37:34 0.9% NaCl I.V. 100 Ashok Perera used for ml/hr St Dom Lauren RN procedure 16:04:46 Versed I.V. 2 mg Ashok Perera for sedation St Dom Lauren RN, MD 16:04:55 Fentanyl I.V. 100 mcg Ashok Preera for sedation [facility] Dom Lauren RN, MD 16:06:41 Radial Cocktail I.A. 1 Ashok Pulido for (Verapamil syringe [facility] vasodilation 2mg/Nitro MD EUBANKS 400mcg/Heparin 1500units) 16:10:47 Versed I.V. 2 mg Ashok Perera for sedation St Dom Lauren RN, MD 16:10:56 Fentanyl I.V. 100 mcg Ashok Perera for sedation St Dom Lauren RN, MD 16:17:51 Heparin Bolus I.V. 4000 Ashok Pulido for units [facility] anticoagulation MD EUBANKS 16:19:59 Versed I.V. 0.5 mg Ashok ePrera for sedation St Dom Lauren RN, MD 16:20:03 Fentanyl I.V. 25 mcg Ashok Perera for sedation St Dom Lauren RN, MD 16:26:56 Plavix P.O. 75 mg Ashok Perera for [facility] Dom Lauren RN antiplatelet therapy Procedure Log Time Note 14:53:31 Informed consent obtained and on chart 14:54:01 Procedure Status Urgent Heart Cath (IP). 14:54:04 Time tracking: Regular hours (M-F 7:00 - 5:00) 14:54:11 Plan of Care:Hemodynamics will remain stable., Cardiac rhythm will remain stable., Comfort level will be maintained., Respiratory function will remain adequate., Patient/ family verbilizes understanding of procedure., Procedure tolerated without complication., Recovers from procedure without complications.. 14:54:41 Toney Sharp RT(R) sent for patient. Start room use. 14:56:05 H&P Date Dictated: 09/15/2019 Within 30 days and on chart.. 15:02:08 Patient Weight : 176.37 lbs 15:02:11 Patient Height : 66.93 inches 15:02:17 Arrival Date: 09/15/2019 12:00:00 AM 15:02:20 Admit Source: Emergency department 15:05:30 Stress Test: no; N/A ? 15:06:04 Lab Result : BUN 13 mg/dl 15:06:04 Lab Result : Creatinine 1 mg/dl 15:06:04 Lab Result : eGFR NONAFRICAN 84 ml/min 15:06:04 Lab Result : Hematocrit 41.3 % 15:06:04 Lab Result : Hemoglobin 13.6 g/dl 15:12:40 Risk of Mortality: .1 15:12:43 Risk of blood transfusion: .1 15:12:46 Risk of KRISTIAN: .1 15:17:10 Patient received from Med II to CCL 1 Alert and oriented. Tansferred to table in Supine position. 15:17:11 Warm blankets applied, and cosme hugger turned on for patient comfort. 15:17:12 Correct patient and procedure confirmed by team. 15:17:13 ECG and BP/O2 sat monitors applied to patient. 15:23:22 Vital chart was started 15:23:23 Baseline sample Acquired. 15:23:28 Rhythm: sinus rhythm 15:23:30 Full Disclosure recording started 15:23:31 Pre-procedure instructions explained to patient. 15:23:31 Pre-op teaching completed and patient verbalized understanding. 15:23:34 Family in patients room. 15:23:38 Patient NPO since Breakfast. 15:24:16 Is the patient allergic to Iodine/contrast media? No. 15:24:25 Is patient on blood thinner?Yes 15:24:29 ACC The patient was administered the following blood thiners within the last 24 hours: ACCAspirin, ACCPlavix 15:24:32 Patient diabetic? No. 15:24:35 ----Pre-sedation anethsthesia assessment.---- 15:24:44 Previous problem with sedation/anesthesia? No ? 15:24:47 Snore? Yes 15:24:49 Sleep apnea? No 15:24:50 Deviated septum? Yes 15:24:58 Opens mouth fully? Yes 15:24:59 Sticks out tongue? Yes 15:25:02 Airway obstruction? No ? 15:26:46 Dentures? Yes in tight 15:26:51 Pre procedure: right dorsailis pedis pulse 2+ Normal; easily identifiable; not easily obliterated 15:26:53 Modified Ken's test Ulnar < 7 seconds 15:26:56 Patient pain scale 0/10 ?. 15:27:17 IV patent on arrival in left forearm with 0.9% NaCl at 10ml/hr. 15:27:21 Right groin area was prepped with chlora-prep and draped in sterile fashion 15:27:24 Right Radial & Right Groin area was prepped with chlora-prep and draped in sterile fashion 15:27:25 Alarms reviewed by R. N. 15:27:25 Sharps counted by scrub and verified by R.N. 15:27:31 Use device set Radial Dx or PCI 15:27:32 ACIST Syringe (05304) opened to sterile field. 15:27:32 Medline Cath Pack ([id number]) opened to sterile field. 15:27:33 Bag Decanter (2002S) opened to sterile field. 15:27:33 ACIST Hand Control (13457) opened to sterile field. 15:27:34 ACIST Manifold (81191) opened to sterile field. 15:27:34 Tegaderm 4 x 4 (1626W) opened to sterile field. 15:27:34 MBrace Wrist Support ([id number]) opened to sterile field. 15:27:38 EMERALD Guide Wire (440-168) opened to sterile field. 15:27:39 SHEATH 6FR RAIN (4850340) opened to sterile field. 15:27:42 ZEPHYR REGULAR TR BAND (314788) opened to sterile field. 15:35:58 Oxygen 2 l/min etCO2 Nasal cannula was administered by Dilma Lauren RN; used for procedure; Verbal order read back and verified. 15:36:06 Lidocaine 2% 20ml vial added to field was administered by Ashok Peter MD; for local anesthetic; Verbal order read back and verified. 15:36:24 Heparin Flush Bag (1000units/500ml NS) 2 bags added to field was administered by Ashok Peter MD; used for procedure; Verbal order read back and verified. 15:37:34 0.9% NaCl 100 ml/hr I.V. was administered by Dilma Lauren RN; used for procedure; Verbal order read back and verified. 15:38:52 Zero performed for pressure channel P1 16:03:51 --------ALL STOP TIME OUT------ 16:03:51 Final Timeout: patient, procedure, and site verified with staff and physician. All members of the team are in agreement. 16:03:54 Right Radial & Right Groin site verified by team. 16:03:57 Fire Safety Assessment: A--An alcohol-based skin anteseptic being used preoperatively., C--Open oxygen or nitrous oxide is being used., D--An ESU, laser, or fiber-optic light is being used. 16:04:01 Physical assessment completed. ASA score P 2 - A patient with mild systemic disease as per Ashok Peter MD. 16:04:15 2) 60-89 Mildly reduced kidney function, and other findings (as for stage 1) point to kidney disease. 16:04:22 Maximum allowable contrast dose (3.7 X eGFR X 0.75)233 ml. 16:04:33 Sedation plan: IV Moderate Sedation Medication:Versed, Fentanyl 16:04:46 Versed 2 mg I.V. was administered by Dilma Lauren RN; for sedation; Verbal order read back and verified. 16:04:55 Fentanyl 100 mcg I.V. was administered by Dilma Lauren RN; for sedation; Verbal order read back and verified. 16:06:41 Radial Cocktail (Verapamil 2mg/Nitro 400mcg/Heparin 1500units) 1 syringe I.A. was administered by Ashok Peter MD; for vasodilation; Verbal order read back and verified. 16:07:10 Procedure started. 16:07:22 Local anesthetic to right radial artery with Lidocaine 2% by Ashok Peter MD.INITIAL ACCESS ONLY 16:07:30 A 6 Fr Short sheath was inserted into the Right Radial artery 16:08:35 A DIAGNOSTIC [place] 110cm 5 Fr catheter ([id number]) was advanced over the wire and used for Procedure. 16:09:18 LV gram done using GARRISON 16:09:22 Injector settings: Ml/sec: 5, Volume: 15, 16:10:12 LV hemodynamics recorded. 16:10:29 EF : 55 % 16:10:47 Versed 2 mg I.V. was administered by Dilma Lauren RN; for sedation; Verbal order read back and verified. 16:10:56 Fentanyl 100 mcg I.V. was administered by Dilma Lauren RN; for sedation; Verbal order read back and verified. 16:12:19 LCA angiography performed. 16:13:31 RCA angiography performed. 16:13:36 Catheter exchanged over wire. 16:13:38 Proceeding to intervention. 16:14:16 INFLATOR Merit BasixCompak (EJ6337) opened to sterile field. 16:14:16 WHISPER 300cm guide wire ([id number]) opened to sterile field. 16:14:36 GUIDE 6FR XBLAD 3.5 catheter ([id number]) opened to sterile field. 16:14:59 Pre PCI Site: [facility] [place] mLAD has 80% stenosis. 16:15:05 6 Fr XBLAD 3.5 guide catheter was inserted over the wire 16:17:51 Heparin Bolus 4000 units I.V. was administered by Ashok Peter MD; for anticoagulation; Verbal order read back and verified. 16:19:02 WHISPER 300 wire advanced. 16:19:03 Wire advanced across lesion. 16:19:59 Versed 0.5 mg I.V. was administered by Dilma Lauren RN; for sedation; Verbal order read back and verified. 16:20:03 Fentanyl 25 mcg I.V. was administered by Dilma Lauren RN; for sedation; Verbal order read back and verified. 16:21:03 Place stent Inflation Number: 1 A TEVIN RX 3.0 x 18 stent ([id number]) was prepped and advanced across the Mid LAD . The stent was deployed at 14 JOHN for 0:00 (min:sec) . 16:21:50 Inflation number: 2 The stent balloon was then re-inflated across the Mid LAD to 14 JOHN for 0:00 (min:sec) . 16:22:10 Stent catheter was removed intact over wire. 16:22:10 Wire removed. 16:22:11 Guide catheter removed. 16:22:49 Procedure ended.(Physican Out) 16:23:32 Contrast amount:Isovue 300 111ml. 16:23:36 Fluoroscopy time 03.90 minutes. 16:23:53 Fluoroscopy dose: 773 mGy 16:23:53 Flurop Dose total: 773 16:24:02 Dose Area Product 58668 mGy/cm. 16:24:09 Sheath removed intact; hemostasis achieved with Mechanical Compression to the Right Radial artery. 16:24:14 Maximum allowable dose exceeded? No. 16:24:16 Sharps counted by scrub and verified by R.N. 16:24:24 [place] band inflated with 10cc of air. 16:24:34 ACT drawn and resulted at 345 seconds. (normal therapeutic range 180-240 seconds). 16:25:40 Post-procedure physical assessment completed. ASA score P 2 - A patient with mild systemic disease as per Ashok Peter MD. 16:25:51 Post procedure rhythm: sinus rhythm 16::04 Estimated blood loss: 10 ml 16::06 Post procedure instruction explained to patient.Patient verbalizes understanding. 16:26:06 Patient needs reinforcement of post procedure teaching. 16::24 Procedure type changed to Cath procedure, Diagnostic procedure, LHC, [facility] w/Coronaries, Sedation Charges, Moderate Sedation up to 15 minutes, PCI procedure, Coronary Stent, Coronary Stent Initial 16::50 Procedure and supply charges have been captured, reviewed, submitted and are correct. 16::56 Plavix 75 mg P.O. was administered by Dilma Lauren RN; for antiplatelet therapy; Verbal order read back and verified. 16:26:56 Procedure Complication : No complications 16:26:59 [facility] Findings: MVD- PCI performed (see procedure note) 16:27:01 Operative report dictated upon procedure completion. 16:27:04 See physician's report for complete and final results. 16:27:27 Vital chart was stopped 16::34 Report given to [facility]. 16:27:37 Patient transfered to [facility] with Bed. 16:27:39 Procedure ended. 16:27:39 Full Disclosure recording stopped 16:27:45 ACC-PCI Only Patient was given prescriptions, or instructed by Ashok Peter MD to start/continue the following medications upon discharge: Plavix 16:27:47 End room use (Document Last) Intervention Summary Intervention Notes Time ActionType Lesion and Equipment Used Action# Pressure Duration Attributes 16:21:03 Place stent Mid LAD TEVIN RX 3.0 x 1 14 00:00 18 stent ([id number]) 16:21:50 Reinflate Mid LAD TEVIN RX 3.0 x 2 14 00:00 stent 18 stent balloon ([id number]) Device Usage Item Name Manufacture Quantity Catalog [facility] Part [facility] Lot# / Number Charge Number Stock Stock Serial# Code ACIST Syringe Acist 1 25656 453602 611498 389391 20 (66490) Medical Systems Inc Medline Cath Medline 1 [id number] 838662 03362 116860 5 Pack ([id number]) Bag Decanter Microtek 1 2001S 700515 97987 145783 5 (2001S) Medical Inc. ACIST Hand Acist 1 07582 697558 959361 821605 5 Control Medical (92442) Systems Inc ACIST Manifold Acist 1 75619 922951 878373 303638 5 (03432) Medical Systems Inc Tegaderm 4 x 4 3M 1 1626W 476139 797483 420151 5 (1626W) MBrace Wrist Advanced 1 140-0250-00 798246 87891 863318 5 Support Vascular (748930225) Dynamics EMERALD Guide Cardinal 1 502-455 493999 109453 361695 5 Wire (502-455) Health SHEATH 6FR Cardinal 1 1075451 959252 5037226 238181 5 RAIN (1308418) Health ZEPHYR REGULAR Cardinal 1 928936 219574 5276654 640253 5 TR BAND Health (212154) DIAGNOSTIC Terumo 1 40-1533 743017 044737 565021 5 [place] 110cm 5 Fr catheter (956128) INFLATOR Merit Merit 1 FV3465 938897 788750 300257 15 BasEncompass Health Medical (UU8379) WHISPER 300cm Moore 1 [id number] 284721 410513 392058 5 guide wire Vascular ([id number]) GUIDE 6FR Cardinal 1 03885695 343836 679921 372259 10 XBLAD 3.5 Health catheter (33148705) TEVIN RX 3.0 x Medtronic 1 [id number] 638807 4738605 428935 5 [id number] 18 stent ([id number]) Signature Audit [place] Stage Time Signature Unsigned Intra-Procedure 09/15/2019 Delicia Chavez 4:30:08 PM RT(R) Intra-Procedure 09/15/2019 Buffie Lauren RN 4:30:31 PM Intra-Procedure 09/15/2019 Ashok Faith 4:30:54 PM Dom EUBANKS [facility] [address] [place] [address]
[~2019-09-14 17:31] MED LIST changes: +ASPIRIN81 MG PO
[2019-09-14 18:12] LABS: BASOPHILS 1.1 % (0-2); EOSINOPHILS 4.7 % (0-7); HEMATOCRIT 41.9 % (42.0-54.0); HEMOGLOBIN 14.2 g/dL (13.5-17.5); IMMATURE GRANULOCYTES 0.2 % (0-5); LYMPHOCYTES 38.1 % (15-50); MCH 30.8 pg (26.0-34.0); MCHC 33.9 g/dL (31.0-37.0); MCV 90.9 fL (80.0-100.0); MONOCYTES 7.7 % (2-11); NEUTROPHILS 48.2 % (40-80); PLATELET COUNT 265 10x3/uL (130-400); RBC 4.61 10x6/uL (4.20-6.10); RDW 13.9 % (11.5-14.5); WBC 9.4 10x3/uL (4.8-10.8)
[2019-09-14 18:21] LABS: APTT 30.4 SECONDS (22.8-39.4); INR 1.04 (0.85-1.17); PROTIME 13.1 SECONDS (11.6-15.0)
[2019-09-14 18:28] LABS: CALC OSMOLALITY 280 mosm/kg (275-300); CALCIUM 8.5 mg/dL (8.5-10.1); CARBON DIOXIDE 22.8 mmol/L (21.0-32.0); CHLORIDE - SERUM 105 mmol/L (98-107); CREATININE - SERUM 1.1 mg/dL (0.6-1.3); GLUCOSE 111 mg/dL (74-106); POTASSIUM - SERUM 3.4 mmol/L (3.5-5.1); SODIUM 141 mmol/L (136-145); UREA NITROGEN 10 mg/dL (7-18); eGFR NON AFRICAN AMERICAN 75 mL/min (90-120)
[2019-09-14 18:45] LABS: ALBUMIN 3.5 g/dL (3.4-5.0); ALKALINE PHOSPHATASE 129 U/L (46-116); ALT (SGPT) 34 U/L (10-68); BILIRUBIN - TOTAL 0.24 mg/dL (0.2-1.3); CKMB 0.4 U/L (0.0-3.6); CREATINE KINASE 79 UL (21-232); MAGNESIUM - SERUM 1.8 mg/dL (1.8-2.4); PROTEIN - SERUM 7.4 g/dL (6.4-8.2); TROPONIN-I < 0.017 ng/mL (0.000-0.060)
[2019-09-14] MEDS ORDERED: ISOSORBIDE MONO60 M1 PO (22:03)
--- NOTE | 2019-09-14 23:05 | NUR ---
PATIENT ARRIVED FROM ER VIA STRETCHER. PATIENT IS ALERT AND ORIENTED RESTING COMFORTABLY IN BED. RESPIRATIONS ARE EVEN AND UNLABORED. NO S/S OF DISTRESS. NO C/O PAIN. CALL LIGHT WITHIN REACH. WILL CPOC.
[2019-09-14 23:15] VITALS: Ht 170.2 cm; Wt 79.5 kg
--- NOTE | 2019-09-14 23:29 | NUR ---
RECIEVED REPORT FROM ER. ARRIVED TO FLOOR IN W/C. TRANSFERED SELF TO BED. ALERT AND ORIENTED X4. UP AD MALCOLM. IV TO LEFT FA. TELEMETRY IN PLACE. DENIES ANY NEEDS. ASSESSMENT COMPLETED.
[2019-09-15 05:38] VITALS: BP 103/61
[2019-09-15 05:53] LABS: BASOPHILS 1.8 % (0-2); EOSINOPHILS 5.4 % (0-7); HEMATOCRIT 41.3 % (42.0-54.0); HEMOGLOBIN 13.6 g/dL (13.5-17.5); IMMATURE GRANULOCYTES 0.5 % (0-5); LYMPHOCYTES 40.7 % (15-50); MCH 30.2 pg (26.0-34.0); MCHC 32.9 g/dL (31.0-37.0); MCV 91.6 fL (80.0-100.0); MEAN PLATELET VOLUME 8.9 fL (7.4-10.4); MONOCYTES 11.1 % (2-11); NEUTROPHILS 40.5 % (40-80); PLATELET COUNT 244 10x3/uL (130-400); RBC 4.51 10x6/uL (4.20-6.10); RDW 14.1 % (11.5-14.5); WBC 7.3 10x3/uL (4.8-10.8)
[2019-09-15 06:10] LABS: CALCIUM 8.4 mg/dL (8.5-10.1); CARBON DIOXIDE 26.3 mmol/L (21.0-32.0); CHLORIDE - SERUM 108 mmol/L (98-107); GLUCOSE 101 mg/dL (74-106); SODIUM 142 mmol/L (136-145); eGFR NON AFRICAN AMERICAN 84 mL/min (90-120)
[2019-09-15 06:13] LABS: CALC OSMOLALITY 282 mosm/kg (275-300); UREA NITROGEN 13 mg/dL (7-18)
[2019-09-15 08:55] LABS: CHOL - HDL RATIO 9.5 ratio (2.3-4.9); LDL-HDL RATIO 6.7 ratio (1.5-3.5)
[2019-09-15 09:04] VITALS: BP 110/68
--- NOTE | 2019-09-15 09:21 | NUR ---
CONSENTS SIGNED FOR [facility]. TELEMETRY SR. WILL CONT. PLAN OF CARE.
[2019-09-15 12:25] VITALS: BP 115/71
--- NOTE | 2019-09-15 14:43 | CN ---
PATIENT NAME:VIRGIL KRAMER JR MEDICAL RECORD: [id number] : 66 LOCATION:[facility] D.2117 ADMIT DATE: ACCOUNT: [id number] CONSULTING PHYSICIAN: SANTIAGO BARRETT MD REFERRING PHYSICIAN: SRIDEVI LEPE MD DATE OF CONSULTATION: 09/15/2019 HISTORY OF PRESENT ILLNESS: A 49-year-old gentleman with a history of coronary artery disease, status post intervention to LAD diagonal has a history of hyperlipidemia, recently seen with increasing angina, started on nitrates. Still having breakthrough symptomology, had rest symptomatology yesterday, class IV angina. Plan for angiography, intervention based on the above. PAST MEDICAL HISTORY: Includes: 1. History of coronary artery disease as described above. 2. Dyslipidemia. ALLERGIES: WELLBUTRIN, KEFLEX, CHANTIX. SOCIAL HISTORY: Smokes about a pack a day, nondrinker. No set exercise program. Easily takes care of his ADLs. REVIEW OF SYSTEMS: The patient reports easy bruising but reports no swollen glands. The patient reports no fever, no night sweats, no significant weight gain, no significant weight loss. No significant exercise tolerance. The patient reports no dry eyes, no irritation, no vision change. Patient reports no difficulty hearing and no ear pain. Patient reports no frequent nose bleeds or nose and sinus problems. Patient reports on arm pain on exertion. No shortness of breath while lying down. No history of heart murmur. Patient reports no cough, no wheezing or coughing up blood. Patient reports no abdominal pain, no vomiting. Normal appetite. No diarrhea and not vomiting blood. No nausea and no constipation. Patient reports no incontinence. No difficulty urinating. No hematuria. No increased frequency. Patient reports no muscle aches. No weakness, no arthralgias, no back pain. No swelling of the extremities. Patient reports no abnormal mole, no jaundice, no rashes. Reports no loss of consciousness. No weakness and no numbness. No seizures, dizziness, or headaches. The patient reports no depression, no sleep disturbance, feeling safe in a relationship and no alcohol abuse. Patient reports on fatigue. Reports no runny nose or sinus pressure. No itching, no hives, and no frequent sneezing. PHYSICAL EXAMINATION: GENERAL: Pleasant gentleman in no acute distress, appears stated age. VITAL SIGNS: Blood pressure 103/61, pulse 70 and regular. HEENT: Normocephalic, atraumatic. NECK: No JVD or bruit. HEART: Regular. LUNGS: Good air excursion. ABDOMEN: Soft, nontender. EXTREMITIES: Pulses 2+ with no edema. DIAGNOSTIC DATA: ECG, nonspecific ST-T changes. IMPRESSION: Worsening progressive angina despite medical therapy. CONSULT REPORT [id number] VIRGIL KRAMER JR PLAN: For angiography, intervention based on the above. TRANSINT:[id number] Voice Confirmation ID: [id number] DOCUMENT ID: [id number] SANTIAGO BARRETT MD at 1443 CC: [id number] DICTATION DATE: 09/15/19 0852 CORPORATE LAW ASSISTANT: 09/15/19 [id number] [place] [address]
[2019-09-15 16:17] VITALS: BP 103/71
--- NOTE | 2019-09-15 16:49 | NUR ---
BACK FROM GRAVEL ROOFER. VS WNL. RIGHT WRIST STABLE WITH Z-BAND INTACT. WILL MONITOR.
--- NOTE | 2019-09-15 19:52 | NUR ---
RECEIVED BEDSIDE REPORT. PATIENT IS ALERT AND ORIENTED, RESTING COMFORTABLY IN BED. RESPIRATIONS ARE EVEN AND UNLABORED. NO S/S OF DISTRESS. NO C/O PAIN. CALL LIGHT WITHIN REACH. WILL CPOC.
--- NOTE | 2019-09-15 20:10 | NUR ---
2 CC OF AIR REMOVED FROM Z BAND. PATIENT BEGAN BLEEDING 2 CC OF AIR REPLACED.
[2019-09-15 20:30] VITALS: BP 111/70
--- NOTE | 2019-09-15 20:39 | NUR ---
RELEASED 2 CC OF AIR. NO S/S OF BLEEDING OR BRUISING.
--- NOTE | 2019-09-15 21:02 | NUR ---
RELEASED ALL AIR FROM Z BAND. NO S/S OF BLEEDING OR BRUISING. RIGHT WRIST CLEANED AND BAND AID PLACED. DEFLATED Z BAND REPLACED A REMINDER TO NOT USE WRIST. EDUCATED PATIENT TO THE S/S OF BLEEDING AND POST CATH INCISION CARE.
--- NOTE | 2019-09-15 21:19 | NUR ---
PATIENT D/C'd. PAPERWORK SIGNED. IV AND TELEMETRY REMOVED. RIGHT WRIST SHOWS NO S/S OF BLEEDING, BRUISING OR SWELLING. PATIENT TRANSPORTED OF FLOOR TO AWAITING VEHICLE VIA WHEELCHAIR BY COMMUNITY ORGANIZER.
--- NOTE | 2019-09-17 11:15 | OP ---
PATIENT NAME: VIRGIL KRAMER JR MEDICAL RECORD: [id number] :66 LOCATION:[facility] ADMISSION DATE: SURGEON: SANTIAGO BARRETT MD DATE OF OPERATION: 09/15/2019 PROCEDURE: Left heart catheterization, selective coronary angiography, right radial approach. CATHETERS: [place] catheter, radial sheath. The procedure was well tolerated. We proceeded with PTCA stenting the LAD. FINDINGS: Left ventriculography in 30-degree GARRISON view: Normal wall motion and normal systolic function. CORONARY ANATOMY: LEFT MAIN: Left main is free of disease. LAD: Has end-stent restenosis as well as end-stent restenosis at the distal portion of 80% diagonal itself, stent is widely patent. CIRCUMFLEX: Stent is widely patent. RIGHT CORONARY ARTERY: Somewhat codominant system. Free of disease. IMPRESSION: Intervention to LAD momentarily. DESCRIPTION OF PROCEDURE: Using indwelling sheath, XB LAD guide catheter provided good guide catheter support followed by 300 cm Whisper wire placed across the distal portion of vessel followed by a 3.0 x 15 mm nondrug-eluting stent up to 14 atmospheres for 45 seconds. This shows resolution of 80% somewhat diffuse end-stent restenosis. No significant residual. NICK flow was 3 throughout the procedure. Heparin was given during the case. Sheath closed with TR band. TRANSINT:[id number] Voice Confirmation ID: [id number] DOCUMENT ID: [id number] SANTIAGO BARRETT MD at 1115 CC: [id number] DICTATION DATE: 09/15/19 1630 OXYGRAPH OPERATOR: 09/15/19 1826 DEP CLI 09/15/19 [facility] [address] [place] [address]
--- NOTE | 2019-09-17 11:15 | DS ---
PATIENT:VIRGIL KRAMER JR :66 MEDICAL RECORD: [id number] DISCHARGE SUMMARY ADMISSION DATE: 09/14/19 DISCHARGE DATE: 09/15/19 DATE OF ADMISSION: 09/14/2019. DATE OF DISCHARGE: 09/15/2019. DIAGNOSES: 1. Acute coronary syndrome. 2. Hypertension. 3. Hyperlipidemia. BRIEF HISTORY AND HOSPITAL COURSE: Admitted with rest angina despite maximal medical therapy, using beta blockade and long-acting nitrates, Ranexa, underwent revascularization of the LAD without difficulty. Discharged home in good condition. ACTIVITY: As tolerated. DIET: AHA diet. TRANSINT:[id number] Voice Confirmation ID: [id number] DOCUMENT ID: [id number] SANTIAGO BARRETT MD at 1115 CC: [id number] DICTATION DATE: 09/15/19 1631 CONSTRUCTION SALES MANAGER: 09/16/19 0011 DEP CLI 09/15/19 [id number] [place] [address]
== END 2019-09-15 21:23 ==
LOC: D.OPS 17:31 → D.M2 17:31 → D.ER 17:31 → EDSTATUS 21:35 → D.M2 21:36 → D.OPS 09-15 21:23
PROVIDERS: Family Medicine; Internal Medicine Interventional Cardiology; ATTEND Internal Medicine Interventional Cardiology
DX: I24.9 Acute ischemic heart disease, unspecified (principal); I25.118 Atherosclerotic heart disease of native coronary artery with other forms of angina pectoris; I10 Essential (primary) hypertension; E78.5 Hyperlipidemia, unspecified